=== PATIENT | female | born 1960 | race Caucasian/White ===

== ENCOUNTER → 2019-10-04 | Outpatient (CLI) | payer BC, MEDICARE ==
[~2019-10-04] MED LIST: ACET-2303 PO; AMPH20TA PO; AMPH20TA2 PO; ASP81TEC PO; ASPI-999 PO; BIOT5TAB PO; BPR150TCR; BUPR150T7 PO; BUPR300T PO; BUPR300T43 PO; BUPR300T51 PO; CALC-225 PO; CALC-80 PO; CITA20TA4 PO; CLON0.5T3 PO; CLOR7.5T3 PO; CLR7.5T; CLR7.5T PO; COREG; CYAN100053 IJ; CYAN10007 PO; D50KC PO; DIPH25TA82 PO; DOCU-161 PO; ERGO500028 PO; ERGO50006 PO; ESCI20TA38 PO; FENO145T2 PO; FISH1CAP15 PO; GABA-486 PO; GLUC1000 PO; IBUP800T26 PO; KCL10CCR; LAMO100T69; LEVO50TA6 PO; LISD50CA2 PO; LUTE1CAP4 PO; MAGN400C PO; MELO-195 PO; MONT10TA24 PO; MULT-946 PO; MULT-974 PO; MULT1TAB69 PO; OMEG1CAP13 PO; OMEG1CAP51 PO; OMEP40CA36 PO; OXYC-12 PO; PRAV20TA3 PO; PREG25CA PO; SENN1TAB76 PO; SNN187T PO; STRATTERA; TOPI25TA2 PO; TRZ50T PO
--- NOTE | 2019-10-04 16:20 | HISTORY AND PHYSICAL ---
DATE OF SERVICE: COLONOSCOPY HISTORY AND PHYSICAL HISTORY OF PRESENT ILLNESS: The patient is a 58-year-old white female referred by Dr. Yuan for her second screening colonoscopy. She is deemed to be of higher than average risk as her father was diagnosed with colon cancer at the age of 80. He at the age of 84. Her mother may have had some colon polyps and also had diverticular disease requiring surgery. Sister also had diverticular disease that required surgery. She recalls that her colonoscopy was unremarkable and she is not sure as to whether or not any diverticulum were noted. She reports some chronic constipation history with no history of bright red blood per rectum or melena. She takes Liana-Colace on a regular basis and usually does not require anything else. 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 She has a history of ADD for which she takes Adderall and hyperlipidemia with no known history of coronary artery disease. She underwent cardiac catheterization in 2007 that was unremarkable, reviewing her catheterization reports. PAST SURGICAL HISTORY: Significant for cholecystectomy and appendectomy more than 5 years ago. 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 Ovaries were left and this was in her 30s. She has had multiple hand surgeries for trigger finger and carpal tunnel. FAMILY HISTORY: As noted in the HPI. In addition, mother is living at the age of 90 with history of coronary artery bypass grafting and bilateral total hip replacement for osteoarthritis and not reported osteoporosis or falls. Her mother also had significant diverticular disease. In review of her electronic medical record, which goes back to 2007, there was no report of colonoscopy being done here by Dr. Allen and she is pretty sure that the procedure was done at [facility] which means it has likely been longer than 12 years ago. MEDICATIONS ON ADMISSION: Wellbutrin-XL 300 mg daily, L-thyroxine 0.05 mg daily, Adderall 20 mg b.i.d., pravastatin 20 mg daily, aspirin 81 mg daily and tranxene 7.5 mg t.i.d. p.r.n. anxiety. SOCIAL HISTORY: She reports no past smoking or drinking history. 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 REVIEW OF SYSTEMS: CONSTITUTIONAL: She denies any change in weight, night sweats, chills or fever. PULMONARY: No dyspnea on exertion, cough, wheezing or history of asthma noted. CARDIOVASCULAR: She denies orthopnea, PND, pedal edema or chest pain. GASTROINTESTINAL: As per HPI. PHYSICAL EXAMINATION: GENERAL: Reveals pleasant white female in no acute distress. Weight 159.6 pounds. VITAL SIGNS: Blood pressure 110/70. HEENT: Unremarkable. Sclerae nonicteric. Mallampati I oropharyngeal configuration. CHEST: Clear to auscultation. CARDIOVASCULAR: Reveals regular rate and rhythm without murmur, S3 or S4. ABDOMEN: Soft, supple without mass, organomegaly or tenderness. EXTREMITIES: Reveal no cyanosis, clubbing or edema. ASSESSMENT: The patient was set up for screening colonoscopy on 10/09/2019. Prep instructions and Suprep kit were given and questions were answered. She was advised to discontinue baby aspirin today and continue her other medications. I thank you for the referral of this pleasant lady. Job ID: [id number] DocumentID: [id number] Dictated Date: 10/04/2019 15:56:05 [employer] Date: 10/04/2019 16:20:23 Dictated By: TYRON DURBIN MD MTDD
--- NOTE | 2019-10-05 10:15 | Diagnostic Imaging Report ---
INDICATION: Routine screening. COMPARISON: Comparison is made with prior mammogram from 08/10/2017 and 01/01/2014. 2-D and 3-D bilateral screening mammography was performed. The current study was also evaluated with a Computer Aided Detection (CAD) system. 3-D tomosynthesis was also performed and reviewed. FINDINGS: Scattered fibroglandular densities are identified bilaterally. The parenchymal pattern is stable. No mass or malignant-appearing microcalcifications are seen. Axillae are unremarkable. IMPRESSION: No mammographic features suspicious for malignancy are identified. ACR BI-RADS Category 1: Negative. Result letter will be mailed to the patient. Note: At least 10% of breast cancer is not imaged by mammography. Dictated by: Dictated on workstation # [id number]
== END ==
LOC: RAD 13:08
PROVIDERS: ATTEND Family Medicine
DX: Z12.31 Encounter for screening mammogram for malignant neoplasm of breast (principal)
CPT/HCPCS: 77067

== ENCOUNTER 2019-10-05 05:35 | Outpatient (CLI) | payer BC, MEDICARE ==
[~2019-10-05] VITALS: Ht 160 cm; Wt 72.3 kg
[~2019-10-05 05:35] MED LIST changes: -AMPH20TA2 PO; -ASPI-999 PO; -BUPR300T43 PO; -CALC-225 PO; -ERGO50006 PO; -LEVO50TA6 PO; -MONT10TA24 PO; -MULT1TAB69 PO; -OMEG1CAP13 PO; -PRAV20TA3 PO
[2019-10-05] MEDS ORDERED: ASPI-999 PO (10:02)
[2019-10-05] MEDS ORDERED: OMEG1CAP13 PO (10:02)
[2019-10-05] MEDS ORDERED: LUTE1CAP4 PO (10:02)
[2019-10-05] MEDS ORDERED: AMPH20TA2 PO (10:02)
[2019-10-05] MEDS ORDERED: OMEP40CA36 PO (10:02)
[2019-10-05] MEDS ORDERED: CALC-225 PO (10:02)
[2019-10-05] MEDS ORDERED: PRAV20TA3 PO (10:02)
[2019-10-05] MEDS ORDERED: MULT1TAB69 PO (10:02)
[2019-10-05] MEDS ORDERED: BUPR300T43 PO (10:02)
[2019-10-05] MEDS ORDERED: ERGO50006 PO (10:02)
[2019-10-05] MEDS ORDERED: MONT10TA24 PO (10:02)
[2019-10-05] MEDS ORDERED: LEVO50TA6 PO (10:02)
== END 2019-10-05 10:03 | disposition home or self-care (01) ==
LOC: PREOP 05:35
PROVIDERS: ATTEND Internal Medicine
DX: Z01.818 Encounter for other preprocedural examination (principal)

== ENCOUNTER → 2021-08-17 | Outpatient (CLI) | payer BC, MEDICARE ==
[~2021-08-17] MED LIST changes: +AMPH20TA2 PO; +ASPI-999 PO; +BUPR300T43 PO; +CALC-225 PO; +ERGO50006 PO; +LEVO50TA6 PO; +MONT10TA32 PO; +MULT-567 PO; +OMEG1CAP13 PO; +OMEP40CA6 PO; +PRAV20TA3 PO
--- NOTE | 2021-08-17 15:39 | Diagnostic Imaging Report ---
INDICATION: Routine screening. COMPARISON is made with prior mammograms 10/04/2019 and 08/10/2017. 2-D and 3-D bilateral screening mammography was performed with CAD. Scattered fibroglandular densities are identified bilaterally. The parenchymal pattern is stable. No mass or malignant-appearing microcalcifications are seen. Axillae are unremarkable. IMPRESSION: BI-RADS Category 1 No mammographic features suspicious for malignancy are identified. ACR BI-RADS Category 1: Negative. Result letter will be mailed to the patient. Note: At least 10% of breast cancer is not imaged by mammography. Dictated by: Dictated on workstation # [id number]
== END ==
LOC: RAD 13:42
PROVIDERS: ATTEND Family Medicine
DX: Z12.31 Encounter for screening mammogram for malignant neoplasm of breast (principal)
CPT/HCPCS: 77063; 77067